=== PATIENT | male | born 1980 | race African-American/Black ===

== ENCOUNTER 2020-12-08 18:23 | Emergency (ER) | payer MEDICAID, OTHER ==
[~2020-12-08] VITALS: Ht 170.2 cm; Wt 59.0 kg
--- NOTE | 2020-12-08 18:50 | NUR ---
SEEN AND EXAMINED BY TIMO LEAHY
--- NOTE | 2020-12-08 18:57 | NUR ---
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
[2020-12-08] MEDS ORDERED: IBUPROFEN 600 MG TABLET ONE (18:58)
[2020-12-08] MEDS: IBUPROFEN 600 MG TABLET PO ONE (19:00)
[2020-12-08] MEDS ORDERED: IBUP-1955 PO (20:15)
[2020-12-08] MEDS ORDERED: CYCL5TAB PO (20:15)
--- NOTE | 2020-12-08 20:25 | NUR ---
Patient discharged to home in stable condition. Written and verbal after care instructions given. Patient verbalizes understanding of instruction and RX. Pt ambulatory with steady gait.vss.
[2020-12-08 20:26] VITALS: BP 134/73
== END 2020-12-08 20:27 | disposition home or self-care (01) ==
LOC: ER 18:26 → EDBD 18:26 → ER 20:27
DX: S16.1XXA Strain of muscle, fascia and tendon at neck level, initial encounter (principal); S40.012A Contusion of left shoulder, initial encounter; S20.212A Contusion of left front wall of thorax, initial encounter; S70.02XA Contusion of left hip, initial encounter; V49.49XA Driver injured in collision with other motor vehicles in traffic accident, initial encounter; Y93.89 Activity, other specified; Y92.413 State road as the place of occurrence of the external cause; Y99.8 Other external cause status
CPT/HCPCS: 71100-TC; 73020; 73030-TC